=== PATIENT | female | born 2000 | race Caucasian/White ===

== ENCOUNTER 2018-12-23 17:30 | Observation (INO) ==
[2018-12-23] MEDS ORDERED: 0.9 % Sodium Chloride 1,000 ML IVC ONE (18:00)
[2018-12-23] MEDS ORDERED: Metoclopramide 10 MG/2 ML VIAL IVP ONE (18:01)
[2018-12-23] MEDS ORDERED: D5% in 0.9% NACL 1,000 ML IVC SCH (18:15)
--- NOTE | 2018-12-23 18:29 | Emergency Department Note ---
Disposition Clinical Impression: Hyperemesis gravidarum Disposition: Admitted As Inpatient Condition: Fair Time of Disposition: 22:02 Nausea/Vomiting/Diarrhea HPI - General Chief complaint: ED Nausea/Vomiting/Diarrhea Stated complaint: Nausea,vomiting, 10 wks preg Time Seen by Provider: 12/23/18 17:50 Source: patient Limitations: no limitations Nursing Notes Reviewed: Yes Vital Signs Reviewed: Yes - History of Present Illness HPI Narrative: 18-year-old female presents from work for evaluation of nausea and vomiting. She is ; approximately 10 weeks gestation. History of hyperemesis gravidarum. She has failed vitamin B6, Opal. She is unable to keep down her Phenergan liquid or her Reglan pill. Symptoms not improved with rectal anti- medic. She is also not able to keep down her vitamins. This is the third ER visit the patient has had in the past month. Most recent visit was approximately 2 days ago. She did not vomit yesterday however had nausea and could only tolerate water, Goldfish crackers, and custard. She vomited late last night as well as 3 times this morning. Nonbilious in no hematemesis. She called her radiotelegraph operator servicer today who advised her presents the emergency department. Patient feels tired. Dehydrated. She is tearful and frustrated because of her recurrent nausea and vomiting. She has had a 22lb weight loss 4lbs of which were in the past week. PMH: None ROS: Positive: Vomiting Negative: Fever, chills, chest pains, palpitations, unusual back pain, h ematemesis, bilious vomiting, change of bowel or bladder habits. - Related Data Previous Rx's Medication Instructions Recorded Doxylamine/Pyridoxine HCl 1 each PO Q6-8H PRN #10 tablet. 11/24/18 [Marly Egan 10-10 mg Tablet] Scopolamine Patch [Transderm-Scop] 1.5 mg TD Q72H #3 patch.td72 11/24/18 Metoclopramide HCl [Metoclopramide 10 mg PO Q6H PRN #12 tab.rapdis 12/09/18 HCl Odt] Metoclopramide [Reglan] 5 ml PO Q6HR 5 Days #100 mls 12/21/18 Allergies Allergy/AdvReac Type Severity Reaction Status Date / Time naproxen AdvReac Palpitation Verified 12/21/18 19:58 s All systems ED: reviewed and negative except as stated. Review of Systems: As Per HPI Past Medical History - Past Medical History Medical history: Reports: other Psychiatric history: Reports: no psych history IMMIGRATION SPECIALIST history: Reports: no IMMIGRATION SPECIALIST history : 1 Para: 0 Ab: 0 - Social History Smoking Status: Never smoker Smokeless Tobacco Status: No Alcohol use: Reports: none Drug use: Reports: none Physical Exam Vital Signs Reviewed General: Patient is alert, oriented, and in no acute distress. Head: atraumatic, normocephalic Eye: normal appearance, PERRL, EOMI, no scleral icterus, no conjunctival injection ENT: mucous membranes moist, normal external ear exam Neck: normal inspection, trachea midline, full ROM Chest: normal inspection, symmetric chest rise Respiratory: Good respiratory effort. Bilateral breath sounds are clear without wheezing, crackles, or rhonchi. Cardiovascular: Regular rate and rhythm. No clicks, rubs, gallops, or murmors. Normal heart sounds. Abdomen: Bowel sounds present normoactive. Abdomen is soft, nondistended, and nontender. No guarding or rebound. No organomegaly noted. Musculoskeletal: Spontaneously moving all extremities. Skin: warm, dry, intact. Neuro: GCS 15. No focal neurologic deficits observed. Psych: Patient's affect is appropriate for situation. - General Limitations: no limitations General appearance: alert, in no apparent distress Course Course Narrative: Concern as patient has failed multiple outpatient medicaitons, has been to the ED multiple times in short timeframe, and has weight loss. She appears pale. 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 She has visibly lost weight. Initial reglan helped the patient transiently. Followed this with benadryl and ativan to affect multiple other chemoreceptors in the vomiting center. 20:47 Discussed the patient with Dahlia, nurse equipment driver. She recommends I speak with Dr. Weber who is air pollution analyst tonight. If admitted, the patient would be admitted to hospitalist with OB consulted. 20:50 Discussed the patient with air pollution analyst OB attending, Dr. Weber. She shares my concern regarding the patinet and requests admission to the OB floor. No further recommendations at this time. Vital Signs Temperature 98.6 F 12/23/18 17:45 Pulse Rate 85 12/23/18 17:45 Respiratory Rate 16 12/23/18 17:45 Blood Pressure 132/85 12/23/18 17:45 O2 Sat by Pulse Oximetry 97 12/23/18 17:45 Temperature 98.6 F 12/23/18 17:45 Pulse Rate 85 12/23/18 17:45 Respiratory Rate 16 12/23/18 21:36 Blood Pressure 117/74 12/23/18 21:36 O2 Sat by Pulse Oximetry 97 12/23/18 17:45 Oxygen Delivery Oxygen Delivery Room Air Nausea/Vomiting/Diarrhea - Lab Data Result diagrams: 12/23/18 18:15 12/23/18 18:15 Lab Results 12/23/18 12/23/18 12/23/18 Range/Units 18:15 18:15 18:26 WBC 12.6 H (4.3-11.1) K/mcL RBC 4.37 (3.82-4.97) M/mcL Hgb 13.1 (11.5-15.4) g/dL Hct 39.2 (35.3-44.9) % MCV 89.7 (83.0-100.0) fL MCH 30.0 (28.0-33.3) pg MCHC 33.4 (31.6-35.5) g/dL RDW 13.4 (11.5-14.5) % Plt Count 216 (140-400) K/mcL MPV 10.0 (9.4-12.4) fL Immature Gran % 0.2 (0-4) % Seg Neutrophils % 82.0 % Lymphocytes % 14.3 % Monocytes % 3.2 % Eosinophils % 0.1 % Basophils % 0.2 % Neutrophils # 10.3 H (1.6-8.9) K/mcL Lymphocytes # 1.8 (0.6-4.6) K/mcL Monocytes # 0.4 (0.0-1.3) K/mcL Eosinophils # 0.0 (0.0-0.6) K/mcL Basophils # 0.0 (0.0-0.2) K/mcL Platelet Estimate Normal (Normal) Sodium 135 L (136-145) mEq/L Potassium 3.7 (3.5-5.1) mEq/L Chloride 100 (98-107) mEq/L Carbon Dioxide 23 (23-29) mEq/L BUN 6 (6-20) mg/dL Creatinine 0.53 L (0.60-1.20) mg/dL Est GFR ( Amer) > 60 (> 60) Est GFR (Non-Af Amer) > 60 (> 60) BUN/Creatinine Ratio 11 (6-26) Glucose 76 (70-105) mg/dL Calculated Osmolality 276 L (280-300) Calcium 9.5 (8.6-10.3) mg/dL Urine Color Yellow (Yellow) Urine Clarity Turbid A (Clear) Urine pH 6.0 (5.0-8.0) pH Units Ur Specific [place] 1.029 H (1.010-1.025) Urine Protein 30 H (Neg-Trace) mg/dL Urine Glucose (UA) Normal (Normal) mg/dL Urine Ketones >=160 H (Negative) mg/dL Urine Blood Negative (Negative) Urine Nitrite Negative (Negative) Urine Bilirubin Negative (Negative) Urine Urobilinogen Normal (Normal) mg/dL Ur Leukocyte Esterase Moderate H (Negative) Urine Microscopic RBC 5-15 H (0-3) per hpf Urine Microscopic WBC 50-100 H (0-3) per hpf Ur Squamous Epith Cells Many H (None-Few) per lpf Urine Bacteria Many H (None-Few) per hpf Ur Culture Indicated? YES A (NO) Attestation Statement - Attestation Attestation: Resident Attestation: I examined this patient and my medical decision making was reviewed with the Resident Physician. I agree with the documented findings, disposition and treatment plan as described except to the extent set forth below. We independently had [id number] contact with the patient. Patient proximally 10 weeks presenting for evaluation of nausea vomiting and inability to keep down food or fluids. Patient has been having continued the worse symptoms over the last 2 weeks. Peak this is the patient's third visit in the emergency department for this. Patient has been doing the appropriate home therapies taking vitamin B6 and tics Alamine as well as Reglan and suppositories. Patient has had approximately a 22 pound weight loss over the last month with 4 pounds being over the last week. Patient will undergo further evaluation for hyperemesis gravidarum. Patient will receive fluids as well as dextrose solution. Patient will likely require admission.
[2018-12-23 18:36] LABS: Bilirubin,Urine Negative (Negative); Blood,Urine Negative (Negative); Clarity,Urine Turbid (Clear); Color,Urine Yellow (Yellow); Glucose,Urine (UA) Normal (Normal); Ketones,Urine >=160 mg/dL (Negative); Leukocyte Esterase,Urine Moderate (Negative); Nitrite,Urine Negative (Negative); Protein,Urine 30 mg/dL (Neg-Trace); Specific Gravity,Urine 1.029 (1.010-1.025); Urobilinogen,Urine Normal (Normal)
[2018-12-23 18:36] LABS: Basophils % 0.2 %; Eosinophils % 0.1 %; Hematocrit 39.2 % (35.3-44.9); Hemoglobin 13.1 g/dL (11.5-15.4); Immature Granulocytes % 0.2 % (0-4); Lymphocytes # 1.8 K/mcL (0.6-4.6); Lymphocytes % 14.3 %; Mean Corpuscular HGB Conc 33.4 g/dL (31.6-35.5); Mean Corpuscular Volume 89.7 fL (83.0-100.0); Monocytes # 0.4 K/mcL (0.0-1.3); Monocytes % 3.2 %; Neutrophils # 10.3 K/mcL (1.6-8.9); Platelet Count 216 K/mcL (140-400); Red Blood Count 4.37 M/mcL (3.82-4.97); Red Cell Distribution Width 13.4 % (11.5-14.5)
[2018-12-23 18:40] LABS: Bacteria,Urine Many per hpf (None-Few); Squamous Epithelial Cell,Urine Many per lpf (None-Few); WBC,Urine 50-100 per hpf (0-3)
[2018-12-23 18:53] LABS: BUN/Creatinine Ratio 11 (6-26); Blood Urea Nitrogen 6 mg/dL (6-20); Calcium 9.5 mg/dL (8.6-10.3); Carbon Dioxide 23 mEq/L (23-29); Chloride 100 mEq/L (98-107); Glucose 76 mg/dL (70-105); Osmolality,Calculated 276 (280-300); Potassium 3.7 mEq/L (3.5-5.1); Sodium 135 mEq/L (136-145); eGFR For Non-African Americans > 60 (> 60)
[2018-12-23 19:36] LABS: Platelet Estimate Normal (Normal)
[2018-12-23] MEDS ORDERED: *HR* LORazepam 2 MG/ML VIAL IVP ONE (19:49)
[2018-12-23] MEDS ORDERED: Ringers Solution, Lactated 1,000 ML IVC ONE (22:55)
--- NOTE | 2018-12-23 23:15 | OB/GYN History & Physical ---
Date of Encounter: 12/23/18 Time of Encounter: 23:09 Assessment and Plan (1) Nausea and vomiting during Current visit: No Status: Acute (2) Hyperemesis gravidarum Current visit: Yes Status: Acute 18yo at 10+0 weeks GA who presents with persistent n/v, refractory to PO m edications. Diagnosed with HEG (hyperemesis gravidarum). HD#0 1. Hyperemesis gravidarum - CHEM10 ordered STAT, will trend LFTs - UA performed in ED consistent with dehydration (+ketones) - mild relief with Bonjesta and Pepcid at home for ~1 week, but symptoms eventually returned - started on rectal supossitories yesterday PM but still, unable to tolerate any form of PO - labs ordered STAT: CHEM, repeat labs in AM: CBC and CHEM7 - ordered: IV only, will transition PO only when able to tolerate - rx: IV Benadryl STAT x1 tonight, IV zofran q8hr, IV reglan q6hr, IV pepcid 20mg BID, IV B6 daily - IVF: 1000mL LR bolus given STAT on admission to unit, will continue to 12 5mL/HR - Diet: OK to ADAT to regular, recommendation for patient to start with CLD and crackers 2. MWB - normotensive - VSS, HDS, afebrile - denies VB/LOF/contraction(S) - mild distress, reports to be very hungry - ordered labs (CHEM 10) and will replace MAG and K+ as able 3. FWB - TVUS performed on presentation to ED - FHT appreciated (see radiographic imaging) - UTD PNC with [facility] - will need daily FHT with doppler Dispo: Admission to Mother/ unit for diagnosis of hyperemesis gravidarum. Started patient on IVF and IV antiemetics and reflux rx. OK for CLD, and to advance diet as tolerated. Awaiting CHEM10. Awaiting LFTs. MD CIARAN History of Present Illness Chief complaint: HEG HPI: Ms. Ordaz is a 18 year old female at 10+0 weeks GA who presents to the ED for the third time this month, reporting issues with persistent nausea, persistent vomiting, and inability to tolerate any PO. Patient reports having had ~22# weight loss since her found out she was . The patient was recently seen in the office last week and started on Bonjesta with PEPCID which seemed to help for approximately a week. Unfortunately the patent reported having persistent symptoms again, and presented to the ED yesterday and again today for her inability to tolerate any PO. TAUS as been normal within limits. Patient is most concerned about well-being and if/when she will be able to tolerate any food. She was given rectal reglan and reported mild, MILD relief. Patient does not feel well, and appropriately is becoming frustrated. Her UOP has tapered due to inability to tolerate po hydration. +ketones in urine. Past Med Surg Social Fam HX - Past Medical History Medical history: other Additional medical history: "heart condition". hypoglycemia. ovarian cysts Psychiatric history: no psych history - Social History Smoking Status: Never smoker Smokeless Tobacco Status: No Alcohol use: none Drug use: none Obstetrical History - Pregnancies : 1 Para: 0 Livin Medications and Allergies Doxylamine/Pyridoxine HCl [Marly Dr 10-10 mg Tablet] 1 each PO Q6-8H PRN #10 tablet.dr 11/24/18 [Rx] Scopolamine Patch [Transderm-Scop] 1.5 mg TD Q72H #3 patch.td72 11/24/18 [Rx] Metoclopramide HCl [Metoclopramide HCl Odt] 10 mg PO Q6H PRN #12 tab.rapdis 12/09/18 [Rx] Metoclopramide [Reglan] 5 ml PO Q6HR 5 Days #100 mls 12/21/18 [Rx] Allergy/AdvReac Type Severity Reaction Status Date / Time naproxen AdvReac Palpitation Verified 12/21/18 19:58 s Exam - Vital Signs Vital signs: Initial Vital Signs Temp Pulse Resp BP Pulse Ox 98.6 F 85 16 132/85 97 12/23/18 17:45 12/23/18 17:45 12/23/18 17:45 12/23/18 17:45 12/23/18 17:45 - Constitutional Constitutional: well developed, average body habitus, mild distress, severe distress - HEENT HEENT: Normocephaly, Mucus Membranes Dry - Neck Neck exam: full ROM - Lungs Respiratory exam: CTAB - Cardiovascular Cardiovascular exam: RRR - Abdomen Abdomen: Present: bowel sounds normal - Uterus Uterus exam: Present: normal size, normal contour - Anus/Rectum Anus/Rectum: Present: normal perianal skin, heme negative Results Result Diagrams: 12/23/18 18:15 12/23/18 18:15 Abnormal lab results WBC 12.6 K/mcL (4.3-11.1) H 12/23/18 18:15 10.3 K/mcL (1.6-8.9) H 12/23/18 18:15 Sodium 135 mEq/L (136-145) L 12/23/18 18:15 0.53 mg/dL (0.60-1.20) L 12/23/18 18:15 276 (280-300) L 12/23/18 18:15 Turbid (Clear) A 12/23/18 18:26 Ur Specific [place] 1.029 (1.010-1.025) H 12/23/18 18:26 30 mg/dL (Neg-Trace) H 12/23/18 18:26 >=160 mg/dL (Negative) H 12/23/18 18:26 Ur Leukocyte Esterase Moderate (Negative) H 12/23/18 18:26 5-15 per hpf (0-3) H 12/23/18 18:26 50-100 per hpf (0-3) H 12/23/18 18:26 Ur Squamous Epith Cells Many per lpf (None-Few) H 12/23/18 18:26 Many per hpf (None-Few) H 12/23/18 18:26 Ur Culture Indicated? YES (NO) A 12/23/18 18:26 All other labs normal.
[2018-12-23] MEDS: Famotidine 20 MG/2 ML VIAL IVP SCH (23:25)
[2018-12-23] MEDS: Pyridoxine (B-6) 100 MG/ML VIAL IVP SCH (23:26)
[2018-12-24] MEDS: Ondansetron 4 MG/2 ML VIAL IVP SCH ×4 (00:01→23:45)
[2018-12-24] MEDS: Metoclopramide 10 MG/2 ML VIAL IVP SCH ×5 (00:02→23:46)
[2018-12-24 00:13] LABS: Alanine Aminotransferase 13 Units/L (7-52); Albumin 3.5 g/dL (3.5-5.7); Albumin/Globulin Ratio 1.4 (1.1-2.2); Alkaline Phosphatase 36 Units/L (34-104); Aspartate Amino Transferase 15 Units/L (13-39); BUN/Creatinine Ratio 7 (6-26); Bilirubin,Total 0.4 mg/dL (0.3-1.0); Blood Urea Nitrogen 3 mg/dL (6-20); Calcium 8.2 mg/dL (8.6-10.3); Carbon Dioxide 21 mEq/L (23-29); Chloride 107 mEq/L (98-107); Globulin 2.5 g/dL (2.4-3.5); Glucose 71 mg/dL (70-105); Osmolality,Calculated 277 (280-300); Potassium 3.6 mEq/L (3.5-5.1); Sodium 136 mEq/L (136-145); eGFR For Non-African Americans > 60 (> 60)
[2018-12-24] MEDS: Ringers Solution, Lactated 1,000 ML IVC SCH ×4 (00:27→23:45)
[2018-12-24 05:10] LABS: Basophils % 0.3 %; Eosinophils % 0.5 %; Hematocrit 30.3 % (35.3-44.9); Immature Granulocytes % 0.3 % (0-4); Lymphocytes # 2.7 K/mcL (0.6-4.6); Lymphocytes % 31.5 %; Mean Corpuscular HGB Conc 33.3 g/dL (31.6-35.5); Mean Corpuscular Hemoglobin 30.1 pg (28.0-33.3); Mean Corpuscular Volume 90.4 fL (83.0-100.0); Mean Platelet Volume 10.3 fL (9.4-12.4); Monocytes # 0.6 K/mcL (0.0-1.3); Monocytes % 6.6 %; Neutrophils # 5.3 K/mcL (1.6-8.9); Platelet Count 184 K/mcL (140-400); Red Blood Count 3.35 M/mcL (3.82-4.97); Red Cell Distribution Width 13.5 % (11.5-14.5); Segmented Neutrophils % 60.8 %
[2018-12-24 05:17] LABS: Hemoglobin 10.1 g/dL (11.5-15.4)
[2018-12-24 05:27] LABS: BUN/Creatinine Ratio 7 (6-26); Blood Urea Nitrogen 3 mg/dL (6-20); Carbon Dioxide 22 mEq/L (23-29); Chloride 105 mEq/L (98-107); Glucose 79 mg/dL (70-105); Osmolality,Calculated 273 (280-300); Potassium 3.4 mEq/L (3.5-5.1); Sodium 134 mEq/L (136-145); eGFR For Non-African Americans > 60 (> 60)
[2018-12-24] MEDS: Famotidine 20 MG/2 ML VIAL IVP SCH ×2 (06:06→18:16)
[2018-12-24] MEDS: Pyridoxine (B-6) 100 MG/ML VIAL IVP SCH (09:38)
--- NOTE | 2018-12-24 11:30 | OB/GYN Progress Note ---
Date of Encounter: 12/24/18 Time of Encounter: 11:28 - Assessment and Plan (1) 10 weeks gestation of Current Visit: Yes Status: Acute heart tones every shift (2) Hypokalemia Current Visit: Yes Status: Acute 10 mEq of potassium IV twice a day (3) Hyperemesis gravidarum Current Visit: Yes Status: Acute Continue fluid resuscitation Advance diet to BRAT Anticipate discharge home tomorrow Subjective - Subjective Principal diagnosis: hyperemesis gravidarum Interval history: Ms. Ordaz reports she is feeling better and would like to try advancing her diet. She denies lam, blurry vision, n/v/d. Antepartum ROS: no new complaints, no loss of fluid, no vaginal bleeding, no contractions Objective - Vital Signs Vital Signs: Vital Signs Temp Pulse Resp BP Pulse Ox 12/24/18 08:12 98.1 F 72 18 98/63 98 12/24/18 04:20 97.9 F 63 16 85/53 98 12/23/18 22:45 98.2 F 75 14 112/74 99 12/23/18 21:36 16 117/74 12/23/18 19:58 106/75 12/23/18 17:45 98.6 F 85 16 132/85 97 Intake and Output 12/23/18 12/24/18 12/24/18 23:59 07:59 15:59 Intake Total 1999 975 / 975 Balance 1999 975 / 975 Intake: IV Fluids 1999 975 / 975 0.9 % Sodium Chloride 1,000 ML 1000 / 1000 @ 999 mls/hr IVC .Q1H1M ONE Rx# :[id number] D5% And 0.9% Nacl 1000 Ml 1,000 1000 / 1000 ML @ 125 mls/hr IVC .Q8H RONNI Rx#:[id number] Lactated Ringers 1,000 ML @ 125 975 / 975 mls/hr IVC .Q8H RONNI Rx#: [id number] Other: # Voids 1 Weight 81.828 kg - Exam Abdomen: Present: normal appearance, soft Uterus: Present: normal - Labs Labs: Abnormal lab results WBC 12.6 K/mcL (4.3-11.1) H 12/23/18 18:15 RBC 3.35 M/mcL (3.82-4.97) L 12/24/18 04:04 Hgb 10.1 g/dL (11.5-15.4) L D 12/24/18 04:04 Hct 30.3 % (35.3-44.9) L 12/24/18 04:04 10.3 K/mcL (1.6-8.9) H 12/23/18 18:15 Sodium 134 mEq/L (136-145) L 12/24/18 04:04 Potassium 3.4 mEq/L (3.5-5.1) L 12/24/18 04:04 Carbon Dioxide 22 mEq/L (23-29) L 12/24/18 04:04 BUN 3 mg/dL (6-20) L 12/24/18 04:04 0.41 mg/dL (0.60-1.20) L 12/24/18 04:04 273 (280-300) L 12/24/18 04:04 Calcium 8.0 mg/dL (8.6-10.3) L 12/24/18 04:04 6.0 g/dL (6.4-8.9) L 12/23/18 23:42 Turbid (Clear) A 12/23/18 18:26 Ur Specific [place] 1.029 (1.010-1.025) H 12/23/18 18:26 30 mg/dL (Neg-Trace) H 12/23/18 18:26 >=160 mg/dL (Negative) H 12/23/18 18:26 Ur Leukocyte Esterase Moderate (Negative) H 12/23/18 18:26 5-15 per hpf (0-3) H 12/23/18 18:26 50-100 per hpf (0-3) H 12/23/18 18:26 Ur Squamous Epith Cells Many per lpf (None-Few) H 12/23/18 18:26 Many per hpf (None-Few) H 12/23/18 18:26 Ur Culture Indicated? YES (NO) A 12/23/18 18:26
[2018-12-24] MEDS ORDERED: *HR* Promethazine 25 MG/ML VIAL IVP PRN (20:55)
[2018-12-25] MEDS: Metoclopramide 10 MG/2 ML VIAL IVP SCH ×2 (06:13→11:51)
[2018-12-25] MEDS: Famotidine 20 MG/2 ML VIAL IVP SCH (06:13)
[2018-12-25] MEDS: Ringers Solution, Lactated 1,000 ML IVC SCH ×2 (06:14→13:07)
[2018-12-25] MEDS: Ondansetron 4 MG/2 ML VIAL IVP SCH (07:51)
[2018-12-25] MEDS ORDERED: Scopolamine Patch 1.5 MG PATCH.TD72 TD SCH (08:45)
[2018-12-25 09:10] LABS: Basophils % 0.1 %; Eosinophils # 0.1 K/mcL (0.0-0.6); Eosinophils % 1.7 %; Hematocrit 31.4 % (35.3-44.9); Hemoglobin 10.4 g/dL (11.5-15.4); Immature Granulocytes % 0.3 % (0-4); Lymphocytes # 2.1 K/mcL (0.6-4.6); Lymphocytes % 26.6 %; Mean Corpuscular HGB Conc 33.1 g/dL (31.6-35.5); Mean Corpuscular Hemoglobin 30.1 pg (28.0-33.3); Mean Corpuscular Volume 90.8 fL (83.0-100.0); Mean Platelet Volume 9.8 fL (9.4-12.4); Monocytes # 0.4 K/mcL (0.0-1.3); Monocytes % 5.5 %; Neutrophils # 5.2 K/mcL (1.6-8.9); Platelet Count 182 K/mcL (140-400); Red Blood Count 3.46 M/mcL (3.82-4.97); Red Cell Distribution Width 13.6 % (11.5-14.5); Segmented Neutrophils % 65.8 %
[2018-12-25 09:27] LABS: Alanine Aminotransferase 11 Units/L (7-52); Albumin 3.3 g/dL (3.5-5.7); Albumin/Globulin Ratio 1.4 (1.1-2.2); Alkaline Phosphatase 33 Units/L (34-104); Aspartate Amino Transferase 15 Units/L (13-39); BUN/Creatinine Ratio 4 (6-26); Bilirubin,Total 0.3 mg/dL (0.3-1.0); Blood Urea Nitrogen 2 mg/dL (6-20); Calcium 8.3 mg/dL (8.6-10.3); Carbon Dioxide 25 mEq/L (23-29); Chloride 105 mEq/L (98-107); Globulin 2.4 g/dL (2.4-3.5); Glucose 132 mg/dL (70-105); Osmolality,Calculated 280 (280-300); Potassium 3.2 mEq/L (3.5-5.1); Sodium 136 mEq/L (136-145); Total Protein 5.7 g/dL (6.4-8.9); eGFR For Non-African Americans > 60 (> 60)
--- NOTE | 2018-12-25 10:03 | OB/GYN Progress Note ---
Date of Encounter: 12/25/18 Time of Encounter: 10:01 - Assessment and Plan (1) 10 weeks gestation of Current Visit: Yes Status: Acute FHT 168 bpm (2) Hyperemesis gravidarum Current Visit: Yes Status: Acute Pt is now tolerating a BRAT diet and sips of apple juice. Scopalamine patch ordered this am. We will slowly transition her to PO medications today and hopefully advance her to regular diet by dinner this evening. Anticipate home in am if tolerating regular diet. (3) Hypokalemia Current Visit: Yes Status: Acute Pt has received IV postassium riders. Her potassium remains low this am. Will try PO potassium with lunch and continue PO potassium if pt is able to tolerate. Subjective - Subjective Principal diagnosis: hyperemesis Interval history: Pt reports she felt the best yesterday but nausea worsened last night and has continued this am. She has not vomited since she has been getting zofran. She denies any other complaints. She did tolerate a BRAT diet for breakfast this am and has been able to keep down some apple juice. Antepartum ROS: no loss of fluid, no vaginal bleeding Objective - Vital Signs Vital Signs: Vital Signs Temp Pulse Pulse Resp BP Pulse Ox 12/25/18 08:14 71 12/25/18 08:06 98.0 F 71 16 104/60 97 12/25/18 06:31 98.0 F 75 16 99/57 99 12/24/18 20:20 97.7 F 88 88 15 91/52 100 12/24/18 16:00 98 F 80 18 101/55 96 12/24/18 12:09 98.6 F 76 16 115/70 98 Intake and Output 12/24/18 12/25/18 12/25/18 23:59 07:59 15:59 Intake Total 1350 / 2665 999 / 2001 1001 / 2001 Output Total 2400 / 3800 500 / 500 Balance -1050 / -1135 1000 / 1502 502 / 1502 Intake: IV Fluids 999 1000 / 1642 642 / 1642 Lactated Ringers 1,000 ML @ 150 1000 / 1000 1000 / 1642 642 / 1642 mls/hr IVC .Q6H40M RONNI Rx#: [id number] Oral 350 / 590 360 / 360 Output: Urine 2400 / 3800 500 / 500 Other: Meal Dinner Breakfast Percent of Meal Consumed 75% 80% Stool Characteristics Normal for Patient - Exam FHR: auscultation normal FHR comments: FHT 168 on doppler auscultation Auscultation: bilateral: normal Abdomen: Present: soft Comments: apical pulse regular rate and rhythm LE without edema - Labs Labs: Abnormal lab results WBC 12.6 K/mcL (4.3-11.1) H 12/23/18 18:15 RBC 3.46 M/mcL (3.82-4.97) L 12/25/18 08:54 Hgb 10.4 g/dL (11.5-15.4) L 12/25/18 08:54 Hct 31.4 % (35.3-44.9) L 12/25/18 08:54 10.3 K/mcL (1.6-8.9) H 12/23/18 18:15 Sodium 134 mEq/L (136-145) L 12/24/18 04:04 Potassium 3.2 mEq/L (3.5-5.1) L 12/25/18 08:54 Carbon Dioxide 22 mEq/L (23-29) L 12/24/18 04:04 BUN 2 mg/dL (6-20) L 12/25/18 08:54 0.54 mg/dL (0.60-1.20) L 12/25/18 08:54 4 (6-26) L 12/25/18 08:54 Glucose 132 mg/dL (70-105) H 12/25/18 08:54 273 (280-300) L 12/24/18 04:04 Calcium 8.3 mg/dL (8.6-10.3) L 12/25/18 08:54 33 Units/L (34-104) L 12/25/18 08:54 5.7 g/dL (6.4-8.9) L 12/25/18 08:54 3.3 g/dL (3.5-5.7) L 12/25/18 08:54 Turbid (Clear) A 12/23/18 18:26 Ur Specific [place] 1.029 (1.010-1.025) H 12/23/18 18:26 30 mg/dL (Neg-Trace) H 12/23/18 18:26 >=160 mg/dL (Negative) H 12/23/18 18:26 Ur Leukocyte Esterase Moderate (Negative) H 12/23/18 18:26 5-15 per hpf (0-3) H 12/23/18 18:26 50-100 per hpf (0-3) H 12/23/18 18:26 Ur Squamous Epith Cells Many per lpf (None-Few) H 12/23/18 18:26 Many per hpf (None-Few) H 12/23/18 18:26 Ur Culture Indicated? YES (NO) A 12/23/18 18:26
[2018-12-25] MEDS: Ondansetron ODT 4 MG TAB.RAPDIS SL PRN (19:43)
[2018-12-25] MEDS: Famotidine 20 MG TABLET PO SCH (19:43)
[2018-12-26] MEDS: Famotidine 20 MG TABLET PO SCH (07:56)
[2018-12-26] MEDS: Ondansetron ODT 4 MG TAB.RAPDIS SL PRN (09:48)
[2018-12-26 09:58] VITALS: BP 101/60
[2018-12-26 10:35] LABS: Basophils % 0.3 %; Eosinophils # 0.1 K/mcL (0.0-0.6); Eosinophils % 1.4 %; Hemoglobin 10.8 g/dL (11.5-15.4); Immature Granulocytes % 0.3 % (0-4); Lymphocytes # 1.9 K/mcL (0.6-4.6); Mean Corpuscular HGB Conc 32.7 g/dL (31.6-35.5); Mean Corpuscular Hemoglobin 29.7 pg (28.0-33.3); Mean Corpuscular Volume 90.7 fL (83.0-100.0); Mean Platelet Volume 9.9 fL (9.4-12.4); Monocytes # 0.4 K/mcL (0.0-1.3); Monocytes % 5.6 %; Neutrophils # 5.3 K/mcL (1.6-8.9); Platelet Count 193 K/mcL (140-400); Red Blood Count 3.64 M/mcL (3.82-4.97); Red Cell Distribution Width 13.6 % (11.5-14.5); Segmented Neutrophils % 68.4 %
[2018-12-26 10:54] LABS: Alanine Aminotransferase 11 Units/L (7-52); Albumin 3.5 g/dL (3.5-5.7); Albumin/Globulin Ratio 1.3 (1.1-2.2); Alkaline Phosphatase 38 Units/L (34-104); Aspartate Amino Transferase 15 Units/L (13-39); BUN/Creatinine Ratio 4 (6-26); Bilirubin,Total 0.2 mg/dL (0.3-1.0); Blood Urea Nitrogen 2 mg/dL (6-20); Calcium 8.8 mg/dL (8.6-10.3); Carbon Dioxide 25 mEq/L (23-29); Chloride 104 mEq/L (98-107); Globulin 2.6 g/dL (2.4-3.5); Glucose 95 mg/dL (70-105); Osmolality,Calculated 278 (280-300); Potassium 3.9 mEq/L (3.5-5.1); Sodium 136 mEq/L (136-145); Total Protein 6.1 g/dL (6.4-8.9); eGFR For Non-African Americans > 60 (> 60)
--- NOTE | 2018-12-26 14:26 | Discharge Summary ---
Date of Encounter: 12/26/18 Time of Encounter: 14:26 - Discharge Diagnosis (1) Hyperemesis gravidarum Priority: Primary Status: Acute Comments: Doing much better today but still has times where she is nauseated but no vomiting -Tolerating regular diet since yesterday. Appropriate I&O. - Discharge home with Pepcid, Reglan, Bonjesta, Zofran, Phenergan, Scopolamine patch placed yesterday. - Follow-up appointment with Dr. Weber tomorrow, 12/27/18 at 1030 (2) 10 weeks gestation of Priority: Secondary Status: Acute Comments: Follow up with OB provider for routine care. - Discharge Medications Prescriptions: New Famotidine [Pepcid] 20 mg PO BID tablet Promethazine [Phenergan] 12.5 mg PO Q6HR PRN tablet PRN Reason: Nausea And Vomiting Ondansetron ODT [Zofran ODT] 4 mg SL Q8HR PRN 30 Days #90 tab.rapdis PRN Reason: Nausea And Vomiting Scopolamine Patch [Transderm-Scop] 1.5 mg TD Q72H patch.td72 Continued Doxylamine/Pyridoxine HCl [Marly Egan 10-10 mg Tablet] 1 each PO Q6-8H PRN #10 tablet. PRN Reason: Nausea Metoclopramide HCl [Metoclopramide HCl Odt] 10 mg PO Q6H PRN #12 tab.rapdis PRN Reason: Nausea Discontinued Scopolamine Patch [Transderm-Scop] 1.5 mg TD Q72H #3 patch.td72 Home Medications: Doxylamine/Pyridoxine HCl [Marly Egan 10-10 mg Tablet] 1 each PO Q6-8H PRN #10 tablet. 11/24/18 [Rx] Metoclopramide HCl [Metoclopramide HCl Odt] 10 mg PO Q6H PRN #12 tab.isaura 12/09/18 [Rx] Famotidine [Pepcid] 20 mg PO BID tablet 12/26/18 [Rx] Ondansetron ODT [Zofran ODT] 4 mg SL Q8HR PRN 30 Days #90 tab.pierodis 12/26/18 [Rx] Promethazine [Phenergan] 12.5 mg PO Q6HR PRN tablet 12/26/18 [Rx] Scopolamine Patch [Transderm-Scop] 1.5 mg TD Q72H patch.td72 12/26/18 [Rx] Allergies/Adverse Reactions: Allergy/AdvReac Type Severity Reaction Status Date / Time naproxen AdvReac Palpitation Verified 12/21/18 19:58 s Data Procedures and tests throughout hospitalization: Laboratory Tests 12/23/18 12/23/18 12/23/18 18:15 18:15 18:26 WBC 12.6 H RBC 4.37 Hgb 13.1 Hct 39.2 MCV 89.7 MCH 30.0 MCHC 33.4 RDW 13.4 Plt Count 216 MPV 10.0 Immature Gran % 0.2 Seg Neutrophils % 82.0 Lymphocytes % 14.3 Monocytes % 3.2 Eosinophils % 0.1 Basophils % 0.2 Neutrophils # 10.3 H Lymphocytes # 1.8 Monocytes # 0.4 Eosinophils # 0.0 Basophils # 0.0 Platelet Estimate Normal Sodium 135 L Potassium 3.7 Chloride 100 Carbon Dioxide 23 BUN 6 Creatinine 0.53 L Est GFR ( Amer) > 60 Est GFR (Non-Af Amer) > 60 BUN/Creatinine Ratio 11 Glucose 76 Calculated Osmolality 276 L Calcium 9.5 Total Bilirubin AST ALT Alkaline Phosphatase Serum Total Protein Albumin Globulin Albumin/Globulin Ratio Urine Color Yellow Urine Clarity Turbid A Urine pH 6.0 Ur Specific [place] 1.029 H Urine Protein 30 H Urine Glucose (UA) Normal Urine Ketones >=160 H Urine Blood Negative Urine Nitrite Negative Urine Bilirubin Negative Urine Urobilinogen Normal Ur Leukocyte Esterase Moderate H Urine Microscopic RBC 5-15 H Urine Microscopic WBC 50-100 H Ur Squamous Epith Cells Many H Urine Bacteria Many H Ur Culture Indicated? YES A 12/23/18 12/24/18 12/24/18 23:42 04:04 04:04 WBC 8.7 RBC 3.35 L Hgb 10.1 L D Hct 30.3 L MCV 90.4 MCH 30.1 MCHC 33.3 RDW 13.5 Plt Count 184 MPV 10.3 Immature Gran % 0.3 Seg Neutrophils % 60.8 Lymphocytes % 31.5 Monocytes % 6.6 Eosinophils % 0.5 Basophils % 0.3 Neutrophils # 5.3 Lymphocytes # 2.7 Monocytes # 0.6 Eosinophils # 0.0 Basophils # 0.0 Platelet Estimate Sodium 136 134 L Potassium 3.6 3.4 L Chloride 107 105 Carbon Dioxide 21 L 22 L BUN 3 L 3 L Creatinine 0.44 L 0.41 L Est GFR ( Amer) > 60 > 60 Est GFR (Non-Af Amer) > 60 > 60 BUN/Creatinine Ratio 7 7 Glucose 71 79 Calculated Osmolality 277 L 273 L Calcium 8.2 L 8.0 L Total Bilirubin 0.4 AST 15 ALT 13 Alkaline Phosphatase 36 Serum Total Protein 6.0 L Albumin 3.5 Globulin 2.5 Albumin/Globulin Ratio 1.4 Urine Color Urine Clarity Urine pH Ur Specific [place] Urine Protein Urine Glucose (UA) Urine Ketones Urine Blood Urine Nitrite Urine Bilirubin Urine Urobilinogen Ur Leukocyte Esterase Urine Microscopic RBC Urine Microscopic WBC Ur Squamous Epith Cells Urine Bacteria Ur Culture Indicated? 12/25/18 12/25/18 12/26/18 08:54 08:54 10:21 WBC 7.9 7.8 RBC 3.46 L 3.64 L Hgb 10.4 L 10.8 L Hct 31.4 L 33.0 L MCV 90.8 90.7 MCH 30.1 29.7 MCHC 33.1 32.7 RDW 13.6 13.6 Plt Count 182 193 MPV 9.8 9.9 Immature Gran % 0.3 0.3 Seg Neutrophils % 65.8 68.4 Lymphocytes % 26.6 24.0 Monocytes % 5.5 5.6 Eosinophils % 1.7 1.4 Basophils % 0.1 0.3 Neutrophils # 5.2 5.3 Lymphocytes # 2.1 1.9 Monocytes # 0.4 0.4 Eosinophils # 0.1 0.1 Basophils # 0.0 0.0 Platelet Estimate Sodium 136 Potassium 3.2 L Chloride 105 Carbon Dioxide 25 BUN 2 L Creatinine 0.54 L Est GFR ( Amer) > 60 Est GFR (Non-Af Amer) > 60 BUN/Creatinine Ratio 4 L Glucose 132 H Calculated Osmolality 280 Calcium 8.3 L Total Bilirubin 0.3 AST 15 ALT 11 Alkaline Phosphatase 33 L Serum Total Protein 5.7 L Albumin 3.3 L Globulin 2.4 Albumin/Globulin Ratio 1.4 Urine Color Urine Clarity Urine pH Ur Specific [place] Urine Protein Urine Glucose (UA) Urine Ketones Urine Blood Urine Nitrite Urine Bilirubin Urine Urobilinogen Ur Leukocyte Esterase Urine Microscopic RBC Urine Microscopic WBC Ur Squamous Epith Cells Urine Bacteria Ur Culture Indicated? 12/26/18 10:21 WBC RBC Hgb Hct MCV MCH MCHC RDW Plt Count MPV Immature Gran % Seg Neutrophils % Lymphocytes % Monocytes % Eosinophils % Basophils % Neutrophils # Lymphocytes # Monocytes # Eosinophils # Basophils # Platelet Estimate Sodium 136 Potassium 3.9 Chloride 104 Carbon Dioxide 25 BUN 2 L Creatinine 0.54 L Est GFR ( Amer) > 60 Est GFR (Non-Af Amer) > 60 BUN/Creatinine Ratio 4 L Glucose 95 Calculated Osmolality 278 L Calcium 8.8 Total Bilirubin 0.2 L AST 15 ALT 11 Alkaline Phosphatase 38 Serum Total Protein 6.1 L Albumin 3.5 Globulin 2.6 Albumin/Globulin Ratio 1.3 Urine Color Urine Clarity Urine pH Ur Specific [place] Urine Protein Urine Glucose (UA) Urine Ketones Urine Blood Urine Nitrite Urine Bilirubin Urine Urobilinogen Ur Leukocyte Esterase Urine Microscopic RBC Urine Microscopic WBC Ur Squamous Epith Cells Urine Bacteria Ur Culture Indicated? Labs on day of discharge: Labs from last 24 hours 12/26/18 12/26/18 10:21 10:21 WBC 7.8 RBC 3.64 L Hgb 10.8 L Hct 33.0 L MCV 90.7 MCH 29.7 MCHC 32.7 RDW 13.6 Plt Count 193 MPV 9.9 Immature Gran % 0.3 Seg Neutrophils % 68.4 Lymphocytes % 24.0 Monocytes % 5.6 Eosinophils % 1.4 Basophils % 0.3 Neutrophils # 5.3 Lymphocytes # 1.9 Monocytes # 0.4 Eosinophils # 0.1 Basophils # 0.0 Sodium 136 Potassium 3.9 Chloride 104 Carbon Dioxide 25 BUN 2 L Creatinine 0.54 L Est GFR ( Amer) > 60 Est GFR (Non-Af Amer) > 60 BUN/Creatinine Ratio 4 L Glucose 95 Calculated Osmolality 278 L Calcium 8.8 Total Bilirubin 0.2 L AST 15 ALT 11 Alkaline Phosphatase 38 Serum Total Protein 6.1 L Albumin 3.5 Globulin 2.6 Albumin/Globulin Ratio 1.3 Date of admission: 12/23/18 21:12 Primary care physician: Argenis Burroughs CNP Discharging clinician: Aurora Posey Anticipated date of discharge: 12/26/18 - Patient Status Disposition: Home, Self-Care Condition: Fair Functional capacity at discharge: independent ambulation Overall status at discharge: patient is progressing back to baseline - Discharge Instructions Follow Up With: Argenis Burroughs CNP [Primary Care Provider] - Sigrid Weber MD [Partnered Physician] - - Diet and Activity Activity: resume usual activities as tolerated Diet: advance to your usual diet Hospital Course DUST SAMPLER Hospital course: Patient has been feeling better since she was given a Scopolamine patch yesterday. She still reports nausea but it helps if she lays completely still. She has been tolerating regular food since yesterday and states she would like to be discharged today. We reviewed her medications and will send RX for Zofran. Patient states she has all the other medications at home already. She is scheduled to see Dr. Weber tomorrow morning and is encouraged to discuss a prior authorization for the Scopolamine patch with her at that time. Patient verbalizes understanding and had all her questions answered. Admission: Assessment and Plan (1) Nausea and vomiting during Current visit: No Status: Acute (2) Hyperemesis gravidarum Current visit: Yes Status: Acute 18yo at 10+0 weeks GA who presents with persistent n/v, refractory to PO medications. Diagnosed with HEG (hyperemesis gravidarum). HD#0 1. Hyperemesis gravidarum - CHEM10 ordered STAT, will trend LFTs - UA performed in ED consistent with dehydration (+ketones) - mild relief with Bonjesta and Pepcid at home for ~1 week, but symptoms eventually returned - started on rectal supossitories yesterday PM but still, unable to tolerate any form of PO - labs ordered STAT: CHEM, repeat labs in AM: CBC and CHEM7 - ordered: IV only, will transition PO only when able to tolerate - rx: IV Benadryl STAT x1 tonight, IV zofran q8hr, IV reglan q6hr, IV pepcid 20mg BID, IV B6 daily - IVF: 1000mL LR bolus given STAT on admission to unit, will continue to 125mL/HR - Diet: OK to ADAT to regular, recommendation for patient to start with CLD and crackers 2. MWB - normotensive - VSS, HDS, afebrile - denies VB/LOF/contraction(S) - mild distress, reports to be very hungry - ordered labs (CHEM 10) and will replace MAG and K+ as able 3. FWB - TVUS performed on presentation to ED - FHT appreciated (see radiographic imaging) - [place] [facility] [place] need [place] FHT with doppler Dispo: Admission to Mother/ unit for diagnosis of hyperemesis gravidarum. Started patient on IVF and IV antiemetics and reflux rx. OK for CLD, and to advance diet as tolerated. Awaiting CHEM10. Awaiting LFTs. MD CIARAN History of Present Illness Chief complaint: HEG HPI: Ms. Ordaz is a 18 year old female at 10+0 weeks GA who presents to the ED for the third time this month, reporting issues with persistent nausea, persistent vomiting, and inability to tolerate any PO. Patient reports having had ~22# weight loss since her found out she was . The patient was recently seen in the office last week and started on Bonjesta with PEPCID which seemed to help for approximately a week. Unfortunately the patent reported having persistent symptoms again, and presented to the ED yesterday and again today for her inability to tolerate any PO. TAUS as been normal within limits. Patient is most concerned about well-being and if/when she will be able to tolerate any food. She was given rectal reglan and reported mild, MILD relief. Patient does not feel well, and appropriately is becoming frustrated. Her UOP has tapered due to inability to tolerate po hydration. +ketones in urine. Past Med Surg Social Fam HX - Past Medical History Medical history: other Additional medical history: "heart condition". hypoglycemia. ovarian cysts Psychiatric history: no psych history - Social History Smoking Status: Never smoker Smokeless Tobacco Status: No Alcohol use: none Drug use: none Obstetrical History - Pregnancies : 1 Para: 0 Livin Time Attestation: Total time spent providing and/or coordinating discharge services: Time Spent: Less than 30 minutes Exam - Constitutional Vitals: Temp Pulse Resp BP Pulse Ox 97.7 F 54 16 101/60 99 12/26/18 08:00 12/26/18 08:00 12/26/18 08:00 12/26/18 08:00 12/26/18 03:06 General appearance IM: A&O X 3, pleasant, no acute distress, answers questions appropriately - Respiratory Respiratory exam: Present: CTAB - Cardiovascular Cardiovascular exam IM: Present: RRR, +S1, +S2 - GI/Abdominal GI/Abdominal exam IM: normal bowel sounds, soft - Rectal Rectal exam: deferred - Extremities Exam Extremities exam IM: Present: full ROM, normal capillary refill, normal inspection - Neurological Exam Neurological exam: alert, normal gait, oriented X3 - Other Additional findings: Able to tolerate regular diet since yesterday, 12/25/18
== END 2018-12-26 14:56 | disposition home or self-care (01) ==
LOC: 1NENUPED 17:30 → EMEROOARM 17:30 → 1NENUPED 22:33
PROVIDERS: ADMIT Student in an Organized Health Care Education/Training Program; ATTEND Student in an Organized Health Care Education/Training Program

== ENCOUNTER → 2019-05-24 20:27 | Observation (INO) ==
[2019-05-24 17:16] LABS: Bilirubin,Urine Negative (Negative); Blood,Urine Negative (Negative); Clarity,Urine Cloudy (Clear); Color,Urine Yellow (Yellow); Glucose,Urine (UA) Normal (Normal); Ketones,Urine Negative (Negative); Leukocyte Esterase,Urine Moderate (Negative); Nitrite,Urine Negative (Negative); PH,Urine 6.5 pH Units (5.0-8.0); Protein,Urine Negative (Neg-Trace); Urobilinogen,Urine Normal (Normal)
[2019-05-24 17:18] LABS: Hyaline Casts,Urine None Seen per lpf (None-Few); RBC,Urine 0-3 per hpf (0-3); Squamous Epithelial Cell,Urine Many per lpf (None-Few)
[2019-05-24 17:25] LABS: Amphetamine Screen,Urine Negative ng/mL (Cutoff=1000); Barbiturate Screen,Urine Negative ng/mL (Cutoff=200); Benzodiazepines Screen,Urine Negative ng/mL (Cutoff=200); Cannabinoid Screen,Urine Negative ng/mL (Cutoff = 50); Cocaine Screen,Urine Negative ng/mL (Cutoff= 300); Opiate Screen,Urine Negative ng/mL (Cutoff=300); Phencyclidine Screen,Urine Negative ng/mL (Cutoff=25)
[2019-05-24 17:33] LABS: Bacteria,Urine Many per hpf (None-Few); WBC,Urine 15-30 per hpf (0-3)
[2019-05-24 18:24] LABS: Basophils % 0.2 %; Eosinophils # 0.1 K/mcL (0.0-0.6); Eosinophils % 0.8 %; Hematocrit 28.3 % (35.3-44.9); Hemoglobin 9.5 g/dL (11.5-15.4); Immature Granulocytes % 1.1 % (0-4); Lymphocytes # 2.7 K/mcL (0.6-4.6); Lymphocytes % 21.4 %; Mean Corpuscular HGB Conc 33.6 g/dL (31.6-35.5); Mean Corpuscular Hemoglobin 29.1 pg (28.0-33.3); Mean Platelet Volume 11.6 fL (9.4-12.4); Monocytes # 0.7 K/mcL (0.0-1.3); Monocytes % 5.4 %; Platelet Count 191 K/mcL (140-400); Red Blood Count 3.26 M/mcL (3.82-4.97); Red Cell Distribution Width 12.7 % (11.5-14.5); Segmented Neutrophils % 71.1 %; White Blood Count 12.6 K/mcL (4.3-11.1)
[2019-05-24 18:44] LABS: Mean Corpuscular Volume 86.8 fL (83.0-100.0)
[2019-05-24 18:48] LABS: Alanine Aminotransferase 6 Units/L (7-52); Albumin 3.2 g/dL (3.5-5.7); Albumin/Globulin Ratio 1.2 (1.1-2.2); Alkaline Phosphatase 102 Units/L (34-104); Aspartate Amino Transferase 14 Units/L (13-39); BUN/Creatinine Ratio 13 (6-26); Bilirubin,Total 0.3 mg/dL (0.3-1.0); Blood Urea Nitrogen 6 mg/dL (6-20); Calcium 8.2 mg/dL (8.6-10.3); Carbon Dioxide 23 mEq/L (23-29); Chloride 106 mEq/L (98-107); Globulin 2.7 g/dL (2.4-3.5); Glucose 76 mg/dL (70-105); Osmolality,Calculated 276 (280-300); Sodium 135 mEq/L (136-145); Total Protein 5.9 g/dL (6.4-8.9); eGFR For African Americans > 60 (> 60); eGFR For Non-African Americans > 60 (> 60)
[~2019-05-24 20:27] MED LIST: Ondansetron 4 MG/2 ML VIAL IVP ONE; Ringers Solution, Lactated 1,000 ML IVC ONE; Ringers Solution, Lactated 1,000 ML IVC SCH; Ringers Solution, Lactated 1,000 ML ONE
== END | disposition home or self-care (01) ==
LOC: 1NENULAB
PROVIDERS: ADMIT Advanced Practice Midwife; ATTEND Advanced Practice Midwife

== ENCOUNTER 2019-05-30 16:08 | Observation (INO) ==
[2019-05-30 15:20] LABS: Bilirubin,Urine Negative (Negative); Blood,Urine Negative (Negative); Clarity,Urine Cloudy (Clear); Color,Urine Dark Yellow (Yellow); Glucose,Urine (UA) Normal (Normal); Ketones,Urine Negative (Negative); Leukocyte Esterase,Urine Small (Negative); Nitrite,Urine Negative (Negative); Protein,Urine Negative (Neg-Trace); Specific Gravity,Urine 1.028 (1.010-1.025); Urobilinogen,Urine Normal (Normal)
[2019-05-30 15:23] LABS: Bacteria,Urine Few per hpf (None-Few); Hyaline Casts,Urine None Seen per lpf (None-Few); Squamous Epithelial Cell,Urine Many per lpf (None-Few); WBC,Urine 15-30 per hpf (0-3)
== END 2019-05-30 17:43 | disposition home or self-care (01) ==
LOC: 1NENULAB
PROVIDERS: ADMIT Advanced Practice Midwife; ATTEND Advanced Practice Midwife

== ENCOUNTER → 2019-06-07 19:55 | Observation (INO) ==
[2019-06-07 19:16] LABS: Bilirubin,Urine Negative (Negative); Blood,Urine Negative (Negative); Clarity,Urine Cloudy (Clear); Color,Urine Yellow (Yellow); Glucose,Urine (UA) Normal (Normal); Ketones,Urine Negative (Negative); Leukocyte Esterase,Urine Trace (Negative); Nitrite,Urine Negative (Negative); PH,Urine 6.5 pH Units (5.0-8.0); Protein,Urine Negative (Neg-Trace); Specific Gravity,Urine 1.025 (1.010-1.025); Urobilinogen,Urine Normal (Normal)
[2019-06-07 19:18] LABS: Bacteria,Urine Few per hpf (None-Few); Hyaline Casts,Urine None Seen per lpf (None-Few); RBC,Urine 0-3 per hpf (0-3); Squamous Epithelial Cell,Urine Many per lpf (None-Few)
[2019-06-07 19:38] LABS: Amphetamine Screen,Urine Negative ng/mL (Cutoff=1000); Barbiturate Screen,Urine Negative ng/mL (Cutoff=200); Benzodiazepines Screen,Urine Negative ng/mL (Cutoff=200); Cannabinoid Screen,Urine Negative ng/mL (Cutoff = 50); Cocaine Screen,Urine Negative ng/mL (Cutoff= 300); Opiate Screen,Urine Negative ng/mL (Cutoff=300); Phencyclidine Screen,Urine Negative ng/mL (Cutoff=25)
== END | disposition home or self-care (01) ==
LOC: 1NENULAB
PROVIDERS: ADMIT Registered Nurse; ATTEND Registered Nurse

== ENCOUNTER → 2019-06-30 18:59 | Observation (INO) ==
[2019-06-30 18:54] LABS: Amphetamine Screen,Urine Negative ng/mL (Cutoff=1000); Barbiturate Screen,Urine Negative ng/mL (Cutoff=200); Benzodiazepines Screen,Urine Negative ng/mL (Cutoff=200); Cannabinoid Screen,Urine Negative ng/mL (Cutoff = 50); Cocaine Screen,Urine Negative ng/mL (Cutoff= 300); Opiate Screen,Urine Negative ng/mL (Cutoff=300); Phencyclidine Screen,Urine Negative ng/mL (Cutoff=25)
== END | disposition home or self-care (01) ==
LOC: 1NENULAB
PROVIDERS: ADMIT Obstetrics & Gynecology; ATTEND Obstetrics & Gynecology

== ENCOUNTER → 2019-07-03 17:10 | Observation (INO) ==
[2019-07-03 14:43] LABS: Bilirubin,Urine Negative (Negative); Blood,Urine Negative (Negative); Clarity,Urine Cloudy (Clear); Color,Urine Yellow (Yellow); Glucose,Urine (UA) Normal (Normal); Ketones,Urine Negative (Negative); Leukocyte Esterase,Urine Moderate (Negative); Nitrite,Urine Negative (Negative); PH,Urine 7.5 pH Units (5.0-8.0); Protein,Urine Negative (Neg-Trace); Specific Gravity,Urine 1.023 (1.010-1.025); Urobilinogen,Urine Normal (Normal)
[2019-07-03 14:45] LABS: Bacteria,Urine Moderate per hpf (None-Few); Hyaline Casts,Urine None Seen per lpf (None-Few); Squamous Epithelial Cell,Urine Many per lpf (None-Few); WBC,Urine 15-30 per hpf (0-3)
[2019-07-03 14:54] LABS: Amphetamine Screen,Urine Negative ng/mL (Cutoff=1000); Barbiturate Screen,Urine Negative ng/mL (Cutoff=200); Benzodiazepines Screen,Urine Negative ng/mL (Cutoff=200); Cannabinoid Screen,Urine Negative ng/mL (Cutoff = 50); Cocaine Screen,Urine Negative ng/mL (Cutoff= 300); Opiate Screen,Urine Negative ng/mL (Cutoff=300); Phencyclidine Screen,Urine Negative ng/mL (Cutoff=25)
== END | disposition home or self-care (01) ==
LOC: 1NENULAB
PROVIDERS: ADMIT Advanced Practice Midwife; ATTEND Advanced Practice Midwife

== ENCOUNTER → 2019-07-04 22:02 | Observation (INO) | END | disposition home or self-care (01) | LOC: 1NENULAB | PROVIDERS: ADMIT Obstetrics & Gynecology; ATTEND Obstetrics & Gynecology ==

== ENCOUNTER 2019-07-13 23:39 | Inpatient (IN) ==
[2019-07-13] MEDS ORDERED: *HR* Nalbuphine 10 MG/ML AMPUL IVP PRN (23:48)
[2019-07-13] MEDS ORDERED: Metoclopramide 10 MG/2 ML VIAL IVP PRN (23:48)
[2019-07-13] MEDS ORDERED: Famotidine 20 MG/2 ML VIAL IVP PRN (23:48)
[2019-07-13] MEDS ORDERED: Lidocaine 1% 20 ML MDV INFILT PRN (23:48)
[2019-07-13] MEDS ORDERED: Naloxone 0.4 MG/ML INJ IVP PRN (23:48)
[2019-07-13] MEDS ORDERED: miSOPROStoL 25 MCG TABLET PO PRN (23:57)
[2019-07-14 00:34] LABS: Basophils % 0.2 %; Eosinophils # 0.1 K/mcL (0.0-0.6); Eosinophils % 0.5 %; Hematocrit 25.8 % (35.3-44.9); Hemoglobin 8.2 g/dL (11.5-15.4); Immature Granulocytes % 1.1 % (0-4); Lymphocytes # 1.7 K/mcL (0.6-4.6); Lymphocytes % 14.3 %; Mean Corpuscular HGB Conc 31.8 g/dL (31.6-35.5); Mean Corpuscular Hemoglobin 26.6 pg (28.0-33.3); Mean Corpuscular Volume 83.8 fL (83.0-100.0); Mean Platelet Volume 12.9 fL (9.4-12.4); Monocytes # 0.5 K/mcL (0.0-1.3); Monocytes % 4.3 %; Neutrophils # 9.7 K/mcL (1.6-8.9); Platelet Count 163 K/mcL (140-400); Red Blood Count 3.08 M/mcL (3.82-4.97); Red Cell Distribution Width 14.4 % (11.5-14.5); Segmented Neutrophils % 79.6 %; White Blood Count 12.2 K/mcL (4.3-11.1)
[2019-07-14] MEDS: Ringers Solution, Lactated 1,000 ML IVC SCH ×3 (00:36→10:51)
[2019-07-14] MEDS: Oxytocin 20 units/ LR 1000 mL 20 UNIT/1,000 ML BAG IVC SCH ×3 (00:36→16:50)
[2019-07-14] MEDS ORDERED: *HR* FentaNYL (PF) 100 MCG/2 ML VIAL ONE (00:57)
[2019-07-14] MEDS ORDERED: Bupivacaine-MPF 0.25% 10 ML VIAL ONE (00:57)
[2019-07-14] MEDS ORDERED: Epidural Premix (fent/bupiv) 110 ML EP ONE (00:59)
[2019-07-14] MEDS ORDERED: Epidural Premix (fent/bupiv) 110 ML EP SCH (02:00)
[2019-07-14] MEDS ORDERED: Gentamicin 140 MG in 0.9 % Sodium Chloride 100 ML IVPB ONE (08:38)
[2019-07-14] MEDS: Ampicillin 2 GM in 0.9 % Sodium Chloride Mini Bag 100 ML IVPB SCH ×2 (09:45→15:10)
[2019-07-14] MEDS ORDERED: *HR* Ropivacaine/PF 0.5% 20 ML VIAL ONE (10:25)
[2019-07-14] MEDS ORDERED: Ropivacaine/PF 0.2% 20 ML VIAL ONE (10:26)
[2019-07-14] MEDS ORDERED: EPHEDrine 50 MG/ML VIAL IVP PRN (10:54)
[2019-07-14 11:35] LABS: Blood Urea Nitrogen 6 mg/dL (6-20)
[2019-07-14 11:36] LABS: eGFR For African Americans > 60 (> 60); eGFR For Non-African Americans > 60 (> 60)
[2019-07-14] MEDS: Ondansetron 4 MG/2 ML VIAL IVP PRN ×2 (12:19→14:32)
[2019-07-14] MEDS ORDERED: 0.9 % Sodium Chloride 250 ML IVC SCH (14:15)
[2019-07-14] MEDS ORDERED: EPHEDrine 50 MG/ML VIAL ONE (14:17)
[2019-07-14] MEDS ORDERED: Propofol 500 MG/50 ML INFUS..BTL ONE (14:20)
[2019-07-14] MEDS ORDERED: *HR* Midazolam HCl 2 MG/2 ML VIAL ONE (14:20)
[2019-07-14] MEDS ORDERED: *HR* Succinylcholine 200 MG/10 ML VIAL IVP ONE (14:20)
[2019-07-14] MEDS ORDERED: Lidocaine/EPI 1:200k 2% PF 20 ML VIAL ONE (14:21)
[2019-07-14] MEDS ORDERED: Oxytocin 20 units/ LR 1000 mL 20 UNIT/1,000 ML BAG IVC ONE ×2 (14:22→17:42)
[2019-07-14 14:27] LABS: Basophils % 0.2 %; Hematocrit 24.1 % (35.3-44.9); Hemoglobin 7.9 g/dL (11.5-15.4); Immature Granulocytes % 0.5 % (0-4); Lymphocytes # 0.7 K/mcL (0.6-4.6); Lymphocytes % 5.7 %; Mean Corpuscular HGB Conc 32.8 g/dL (31.6-35.5); Mean Corpuscular Hemoglobin 26.7 pg (28.0-33.3); Mean Corpuscular Volume 81.4 fL (83.0-100.0); Mean Platelet Volume 12.4 fL (9.4-12.4); Monocytes # 0.4 K/mcL (0.0-1.3); Monocytes % 3.7 %; Neutrophils # 10.6 K/mcL (1.6-8.9); Platelet Count 163 K/mcL (140-400); Red Blood Count 2.96 M/mcL (3.82-4.97); Red Cell Distribution Width 14.7 % (11.5-14.5); Segmented Neutrophils % 89.9 %; White Blood Count 11.8 K/mcL (4.3-11.1)
[2019-07-14] MEDS ORDERED: 0.9 % Sodium Chloride 2,000 ML ONE (14:27)
[2019-07-14] MEDS ORDERED: Methylergonovine 0.2 MG/ML AMPUL IM ONE (14:29)
[2019-07-14] MEDS ORDERED: Aminoglycoside Consult 1 EACH MC ONE (14:29)
[2019-07-14 15:25] LABS: INR 1.1; Prothrombin Time 12.1 Seconds (9.4-12.1)
[2019-07-14 15:28] LABS: Activated Partial Thrombo Time 25.6 Seconds (26.0-36.0)
[2019-07-14] MEDS ORDERED: Measles/Mumps/Rubella Vacc 0.5 ML VIAL SQ PRN (17:42)
[2019-07-14] MEDS ORDERED: Acetaminophen 325 MG TABLET PO PRN (17:42)
[2019-07-14] MEDS ORDERED: Lanolin 7 G OINT...G. TP PRN (17:42)
[2019-07-14] MEDS ORDERED: Oxytocin 20 units/ LR 1000 mL 20 UNIT/1,000 ML BAG IVC SCH (17:42)
[2019-07-14] MEDS ORDERED: Rho Immune Globulin 1,500 UNIT SYRINGE IM PRN (17:42)
[2019-07-14] MEDS ORDERED: *HR* HYDROcodone/Acet 5/325 mg TABLET PO PRN (17:42)
[2019-07-14] MEDS ORDERED: Gentamicin 110 MG in 0.9 % Sodium Chloride 100 ML IVPB SCH (19:00)
[2019-07-14] MEDS ORDERED: Scopolamine Patch 1.5 MG PATCH.TD72 TD SCH (19:00)
[2019-07-14] MEDS: Metoclopramide 10 MG/2 ML VIAL IVP SCH (19:03)
[2019-07-14 19:11] LABS: INR 1.1; Prothrombin Time 12.2 Seconds (9.4-12.1)
[2019-07-14 19:13] LABS: Activated Partial Thrombo Time 25.6 Seconds (26.0-36.0)
[2019-07-14 21:36] LABS: Basophils % 0.2 %; Hematocrit 24.2 % (35.3-44.9); Hemoglobin 8.4 g/dL (11.5-15.4); Immature Granulocytes % 0.5 % (0-4); Lymphocytes # 1.4 K/mcL (0.6-4.6); Lymphocytes % 8.2 %; Mean Corpuscular HGB Conc 34.7 g/dL (31.6-35.5); Mean Corpuscular Hemoglobin 27.4 pg (28.0-33.3); Mean Corpuscular Volume 78.8 fL (83.0-100.0); Mean Platelet Volume 12.7 fL (9.4-12.4); Monocytes # 0.7 K/mcL (0.0-1.3); Monocytes % 4.1 %; Neutrophils # 14.9 K/mcL (1.6-8.9); Nucleated Red Blood Cells 0.1 /100 WBC (0); Platelet Count 147 K/mcL (140-400); Red Blood Count 3.07 M/mcL (3.82-4.97); Red Cell Distribution Width 14.3 % (11.5-14.5); White Blood Count 17.1 K/mcL (4.3-11.1)
[2019-07-15 05:54] LABS: Basophils % 0.1 %; Eosinophils % 0.1 %; Hematocrit 20.7 % (35.3-44.9); Hemoglobin 7.2 g/dL (11.5-15.4); Immature Granulocytes % 0.7 % (0-4); Lymphocytes # 1.7 K/mcL (0.6-4.6); Lymphocytes % 14.6 %; Mean Corpuscular HGB Conc 34.8 g/dL (31.6-35.5); Mean Corpuscular Hemoglobin 27.3 pg (28.0-33.3); Mean Corpuscular Volume 78.4 fL (83.0-100.0); Mean Platelet Volume 12.3 fL (9.4-12.4); Monocytes # 0.7 K/mcL (0.0-1.3); Neutrophils # 9.2 K/mcL (1.6-8.9); Nucleated Red Blood Cells 0.2 /100 WBC (0); Platelet Count 131 K/mcL (140-400); Red Blood Count 2.64 M/mcL (3.82-4.97); Red Cell Distribution Width 14.6 % (11.5-14.5); Segmented Neutrophils % 78.5 %; White Blood Count 11.7 K/mcL (4.3-11.1)
[2019-07-15] MEDS: Prenatal Vit/FA 1 EACH TABLET PO SCH (08:50)
[2019-07-15] MEDS: Metoclopramide 10 MG/2 ML VIAL IVP SCH ×3 (08:50→21:24)
[2019-07-15] MEDS: Famotidine 20 MG/2 ML VIAL IVP SCH (08:51)
[2019-07-15] MEDS ORDERED: Benzocaine/Menthol 56 GM AEROSOL SPRAY TP PRN (08:58)
[2019-07-15] MEDS ORDERED: 0.9 % Sodium Chloride 500 ML ONE ×2 (09:38→17:28)
[2019-07-15] MEDS: Ibuprofen 600 MG TABLET PO PRN ×2 (09:46→18:43)
[2019-07-15 13:51] LABS: Basophils % 0.2 %; Eosinophils % 0.2 %; Hematocrit 22.8 % (35.3-44.9); Hemoglobin 7.6 g/dL (11.5-15.4); Immature Granulocytes % 0.5 % (0-4); Lymphocytes # 2.4 K/mcL (0.6-4.6); Lymphocytes % 20.6 %; Mean Corpuscular HGB Conc 33.3 g/dL (31.6-35.5); Mean Corpuscular Hemoglobin 27.6 pg (28.0-33.3); Mean Corpuscular Volume 82.9 fL (83.0-100.0); Mean Platelet Volume 12.3 fL (9.4-12.4); Monocytes # 0.6 K/mcL (0.0-1.3); Monocytes % 5.5 %; Neutrophils # 8.5 K/mcL (1.6-8.9); Platelet Count 132 K/mcL (140-400); Red Blood Count 2.75 M/mcL (3.82-4.97); Red Cell Distribution Width 14.7 % (11.5-14.5); White Blood Count 11.6 K/mcL (4.3-11.1)
[2019-07-15 23:01] LABS: Basophils % 0.3 %; Eosinophils # 0.1 K/mcL (0.0-0.6); Eosinophils % 0.4 %; Hematocrit 28.1 % (35.3-44.9); Immature Granulocytes % 0.6 % (0-4); Lymphocytes # 3.3 K/mcL (0.6-4.6); Mean Corpuscular HGB Conc 33.8 g/dL (31.6-35.5); Mean Corpuscular Hemoglobin 27.5 pg (28.0-33.3); Mean Corpuscular Volume 81.2 fL (83.0-100.0); Mean Platelet Volume 12.7 fL (9.4-12.4); Monocytes # 0.7 K/mcL (0.0-1.3); Monocytes % 5.2 %; Neutrophils # 8.6 K/mcL (1.6-8.9); Platelet Count 172 K/mcL (140-400); Red Blood Count 3.46 M/mcL (3.82-4.97); Red Cell Distribution Width 14.7 % (11.5-14.5); Segmented Neutrophils % 67.5 %; White Blood Count 12.7 K/mcL (4.3-11.1)
[2019-07-15 23:03] LABS: Hemoglobin 9.5 g/dL (11.5-15.4)
[2019-07-16 08:23] VITALS: BP 118/75
[2019-07-16] MEDS: Ibuprofen 600 MG TABLET PO PRN (09:49)
[2019-07-16] MEDS: Prenatal Vit/FA 1 EACH TABLET PO SCH (09:50)
[2019-07-16] MEDS: Famotidine 20 MG/2 ML VIAL IVP SCH (10:03)
== END 2019-07-16 14:30 | disposition home or self-care (01) | DRG 768 ==
LOC: 1NENULAB 23:39 → 1NENUOBS 07-14 17:41
PROVIDERS: ADMIT Student in an Organized Health Care Education/Training Program; ATTEND Student in an Organized Health Care Education/Training Program

== ENCOUNTER → 2020-11-15 22:30 | Observation (INO) ==
[2020-11-15 20:34] LABS: Bilirubin,Urine Negative (Negative); Blood,Urine Negative (Negative); Clarity,Urine Turbid (Clear); Color,Urine Light-Yellow (Yellow); Glucose,Urine (UA) 50 mg/dL (Normal); Ketones,Urine Negative (Negative); Leukocyte Esterase,Urine Trace (Negative); Nitrite,Urine Negative (Negative); Protein,Urine Trace mg/dL (Neg-Trace); Specific Gravity,Urine 1.019 (1.010-1.025); Urobilinogen,Urine Normal (Normal)
[2020-11-15 20:35] LABS: Bacteria,Urine Few per hpf (None-Few); Mucus,Urine Few per lpf (None-Few); Squamous Epithelial Cell,Urine Many per hpf (None-Few); WBC,Urine 0-3 per hpf (0-3)
[~2020-11-15 22:30] MED LIST changes: -Ringers Solution, Lactated 1,000 ML ONE
== END | disposition home or self-care (01) ==
LOC: 1NENULAB
PROVIDERS: ADMIT Student in an Organized Health Care Education/Training Program; ATTEND Student in an Organized Health Care Education/Training Program

== ENCOUNTER 2020-11-18 12:45 | Observation (INO) ==
[2020-11-18] MEDS ORDERED: Ondansetron 4 MG/2 ML VIAL IM ONE (13:00)
[2020-11-18] MEDS ORDERED: Ringers Solution, Lactated 1,000 ML IVC SCH (13:00)
[2020-11-18 14:06] LABS: Bacteria,Urine Few per hpf (None-Few); Bilirubin,Urine Negative (Negative); Blood,Urine Negative (Negative); Clarity,Urine Turbid (Clear); Color,Urine Light-Yellow (Yellow); Glucose,Urine (UA) Normal (Normal); Ketones,Urine 40 mg/dL (Negative); Leukocyte Esterase,Urine Moderate (Negative); Mucus,Urine Few per lpf (None-Few); Nitrite,Urine Negative (Negative); PH,Urine 6.5 pH Units (5.0-8.0); Protein,Urine Negative (Neg-Trace); RBC,Urine 0-3 per hpf (0-3); Specific Gravity,Urine 1.012 (1.010-1.025); Squamous Epithelial Cell,Urine Moderate per hpf (None-Few); Urobilinogen,Urine Normal (Normal)
== END 2020-11-18 15:48 | disposition home or self-care (01) ==
LOC: 1NENULAB
PROVIDERS: ADMIT Advanced Practice Midwife; ATTEND Advanced Practice Midwife

== ENCOUNTER → 2020-12-06 16:12 | Observation (INO) ==
[2020-12-06 15:54] LABS: Bacteria,Urine Few per hpf (None-Few); Bilirubin,Urine Negative (Negative); Blood,Urine Negative (Negative); Clarity,Urine Turbid (Clear); Color,Urine Yellow (Yellow); Glucose,Urine (UA) Normal (Normal); Ketones,Urine Negative (Negative); Leukocyte Esterase,Urine Moderate (Negative); Mucus,Urine Few per lpf (None-Few); Nitrite,Urine Negative (Negative); PH,Urine 6.5 pH Units (5.0-8.0); Protein,Urine 30 mg/dL (Neg-Trace); RBC,Urine 0-3 per hpf (0-3); Specific Gravity,Urine 1.026 (1.010-1.025); Squamous Epithelial Cell,Urine Many per hpf (None-Few); Urobilinogen,Urine Normal (Normal); WBC,Urine 15-30 per hpf (0-3)
== END | disposition home or self-care (01) ==
LOC: 1NENULAB
PROVIDERS: ADMIT Advanced Practice Midwife; ATTEND Advanced Practice Midwife

== ENCOUNTER → 2021-03-03 21:11 | Observation (INO) ==
[2021-03-03 18:31] LABS: Basophils % 0.2 %; Eosinophils % 0.2 %; Hemoglobin 11.7 g/dL (11.5-15.4); Immature Granulocytes % 0.5 % (0-4); Lymphocytes # 1.5 K/mcL (0.6-4.6); Lymphocytes % 12.2 %; Mean Corpuscular HGB Conc 33.4 g/dL (31.6-35.5); Mean Corpuscular Volume 89.7 fL (83.0-100.0); Mean Platelet Volume 12.1 fL (9.4-12.4); Monocytes # 0.4 K/mcL (0.0-1.3); Monocytes % 3.4 %; Neutrophils # 10.5 K/mcL (1.6-8.9); Platelet Count 132 K/mcL (140-400); Red Cell Distribution Width 16.6 % (11.5-14.5); Segmented Neutrophils % 83.5 %; White Blood Count 12.5 K/mcL (4.3-11.1)
[~2021-03-03 21:11] MED LIST changes: -Ondansetron 4 MG/2 ML VIAL IVP ONE; +Ondansetron ODT 4 MG TAB.RAPDIS SL ONE; -Ringers Solution, Lactated 1,000 ML IVC ONE; -Ringers Solution, Lactated 1,000 ML IVC SCH
== END | disposition home or self-care (01) ==
LOC: 1NENULAB
PROVIDERS: ADMIT Advanced Practice Midwife; ATTEND Advanced Practice Midwife

== ENCOUNTER 2021-03-04 10:58 | Inpatient (IN) ==
[2021-03-04] MEDS ORDERED: Ondansetron 4 MG/2 ML VIAL IVP PRN (11:26)
[2021-03-04] MEDS ORDERED: 0.9 % Sodium Chloride 1,000 ML IVC SCH (11:30)
[2021-03-04 12:11] LABS: Basophils % 0.2 %; Eosinophils % 0.1 %; Hemoglobin 12.7 g/dL (11.5-15.4); Immature Granulocytes % 0.7 % (0-4); Lymphocytes % 8.7 %; Mean Corpuscular HGB Conc 32.6 g/dL (31.6-35.5); Mean Corpuscular Hemoglobin 29.6 pg (28.0-33.3); Mean Corpuscular Volume 90.9 fL (83.0-100.0); Mean Platelet Volume 12.3 fL (9.4-12.4); Monocytes # 0.4 K/mcL (0.0-1.3); Monocytes % 3.4 %; Neutrophils # 9.5 K/mcL (1.6-8.9); Platelet Count 154 K/mcL (140-400); Red Blood Count 4.29 M/mcL (3.82-4.97); Segmented Neutrophils % 86.9 %; White Blood Count 10.9 K/mcL (4.3-11.1)
[2021-03-04 12:26] LABS: Bilirubin,Urine Negative (Negative); Blood,Urine Negative (Negative); Clarity,Urine Clear (Clear); Color,Urine Yellow (Yellow); Glucose,Urine (UA) Normal (Normal); Ketones,Urine >150 mg/dL (Negative); Leukocyte Esterase,Urine Moderate (Negative); Mucus,Urine Few per lpf (None-Few); Nitrite,Urine Negative (Negative); Protein,Urine 100 mg/dL (Neg-Trace); Specific Gravity,Urine > 1.030 (1.010-1.025); Squamous Epithelial Cell,Urine Moderate per hpf (None-Few)
[2021-03-04] MEDS ORDERED: *HR* Nalbuphine 10 MG/ML AMPUL IV PRN ×2 (14:56→17:34)
[2021-03-04] MEDS ORDERED: Azithromycin 500 MG in 0.9 % Sodium Chloride 250 ML IVPB PRN (17:34)
[2021-03-04] MEDS ORDERED: Famotidine 20 MG/2 ML VIAL IVP PRN (17:34)
[2021-03-04] MEDS ORDERED: Metoclopramide 10 MG/2 ML VIAL IVP PRN (17:34)
[2021-03-04] MEDS ORDERED: Naloxone 0.4 MG/ML INJ IVP PRN (17:34)
[2021-03-04 18:24] LABS: Amphetamine Screen,Urine Negative ng/mL (Cutoff=1000); Barbiturate Screen,Urine Negative ng/mL (Cutoff=200); Benzodiazepines Screen,Urine Negative ng/mL (Cutoff=200); Cannabinoid Screen,Urine Negative ng/mL (Cutoff = 50); Cocaine Screen,Urine Negative ng/mL (Cutoff= 300); Opiate Screen,Urine Negative ng/mL (Cutoff=300); Phencyclidine Screen,Urine Negative ng/mL (Cutoff=25)
[2021-03-04] MEDS ORDERED: Famotidine 20 MG/2 ML VIAL IVP ONE (18:53)
[2021-03-04] MEDS ORDERED: EPHEDrine 50 MG/ML VIAL IVP PRN (19:01)
[2021-03-04] MEDS ORDERED: Ropivacaine/PF 0.2% 20 ML VIAL EP ONE (19:01)
[2021-03-04] MEDS ORDERED: *HR* FentaNYL (PF) 100 MCG/2 ML VIAL EP ONE (19:01)
[2021-03-04] MEDS ORDERED: Ropivacaine/PF 0.2% 20 ML VIAL ONE (19:09)
[2021-03-04] MEDS ORDERED: *HR* FentaNYL (PF) 250 MCG/5 ML VIAL ONE (19:09)
[2021-03-04 19:31] LABS: Gardnerella DNA DETECTED (Not Detect); Trichomonas DNA Not Detected (Not Detect)
[2021-03-04 19:32] LABS: Candida DNA Not Detected (Not Detect)
[2021-03-04] MEDS: Ondansetron 4 MG/2 ML VIAL IVP PRN (20:17)
[2021-03-04] MEDS ORDERED: metroNIDAZOLE 500 MG TABLET PO SCH (21:00)
[2021-03-04] MEDS ORDERED: *HR* FentaNYL (PF) 100 MCG/2 ML VIAL ONE (21:26)
[2021-03-04] MEDS ORDERED: Oxytocin 20 units/ LR 1000 mL 20 UNIT/1,000 ML BAG IVC ONE (23:23)
[2021-03-04] MEDS: Ringers Solution, Lactated 1,000 ML IVC SCH (23:28)
[2021-03-04] MEDS ORDERED: Oxytocin 20 units/ LR 1000 mL 20 UNIT/1,000 ML BAG IVC SCH (23:30)
[2021-03-05] MEDS: Ondansetron 4 MG/2 ML VIAL IVP PRN ×3 (02:57→17:29)
[2021-03-05] MEDS ORDERED: *HR* FentaNYL (PF) 100 MCG/2 ML VIAL ONE ×2 (03:38→15:26)
[2021-03-05] MEDS: Ringers Solution, Lactated 1,000 ML IVC SCH ×2 (07:24→13:52)
[2021-03-05] MEDS: Epidural Premix (fent/bupiv) 110 ML EP SCH ×2 (08:24→14:02)
[2021-03-05] MEDS ORDERED: Ropivacaine/PF 0.2% 20 ML VIAL ONE (11:35)
[2021-03-05] MEDS ORDERED: *HR* Ropivacaine/PF 0.5% 20 ML VIAL ONE (11:35)
[2021-03-05] MEDS ORDERED: miSOPROStoL 100 MCG TABLET RC ONE (17:29)
[2021-03-05] MEDS ORDERED: Methylergonovine 0.2 MG/ML AMPUL IM ONE (17:29)
[2021-03-05] MEDS ORDERED: Ibuprofen 600 MG TABLET PO PRN (20:42)
[2021-03-05] MEDS ORDERED: Benzocaine/Menthol 56 GM AEROSOL SPRAY TP PRN (20:42)
[2021-03-05] MEDS ORDERED: Oxytocin 20 units/ LR 1000 mL 20 UNIT/1,000 ML BAG IVC SCH (20:42)
[2021-03-05] MEDS ORDERED: Acetaminophen 325 MG TABLET PO PRN (20:42)
[2021-03-05] MEDS ORDERED: Measles/Mumps/Rubella Vacc 0.5 ML VIAL SQ PRN (20:42)
[2021-03-05] MEDS ORDERED: Lanolin 7 G OINT...G. TP PRN (20:42)
[2021-03-06 06:23] LABS: Basophils % 0.2 %; Eosinophils # 0.1 K/mcL (0.0-0.6); Eosinophils % 0.7 %; Hematocrit 29.7 % (35.3-44.9); Immature Granulocytes % 0.9 % (0-4); Lymphocytes # 2.6 K/mcL (0.6-4.6); Lymphocytes % 22.5 %; Mean Corpuscular Hemoglobin 29.8 pg (28.0-33.3); Mean Corpuscular Volume 90.3 fL (83.0-100.0); Mean Platelet Volume 11.9 fL (9.4-12.4); Monocytes # 0.7 K/mcL (0.0-1.3); Monocytes % 5.8 %; Platelet Count 124 K/mcL (140-400); Red Blood Count 3.29 M/mcL (3.82-4.97); Segmented Neutrophils % 69.9 %; White Blood Count 11.5 K/mcL (4.3-11.1)
[2021-03-06 06:27] LABS: Hemoglobin 9.8 g/dL (11.5-15.4)
[2021-03-06] MEDS ORDERED: Ondansetron 4 MG/2 ML VIAL IVP PRN (08:14)
[2021-03-06] MEDS ORDERED: Prenatal Vit/FA 1 EACH TABLET PO SCH (09:00)
[2021-03-06] MEDS: miSOPROStoL 100 MCG TABLET PO SCH ×2 (10:37→17:11)
[2021-03-06 16:48] VITALS: BP 88/46; PULSE 68; TEMP 97.9; O2SAT 99
== END 2021-03-06 17:30 | disposition home or self-care (01) | DRG 768 ==
LOC: 1NENULAB → 1NENUOBS 03-05 20:41
PROVIDERS: ADMIT Registered Nurse; ATTEND Registered Nurse